=== PATIENT | male | born 1950 | race Caucasian/White ===

== ENCOUNTER 2016-09-24 21:22 | Emergency (ER) | payer OTHER ==
[2016-09-24 21:32] VITALS: RESP 16; TEMP 97.9
[2016-09-24 21:51] LABS: % IMMATURE GRANULYOCYTES 0.6 % (0.0-1.1); ABSOLUTE IMMATURE GRANULOCYTES 0.04 10^3/uL (0.00-0.10); ADD DIFF? NO; ADD MORPH? NO; ADD SCAN? NO; ATYPICAL LYMPHOCYTE FLAG 10 (0-99); FRAGMENT RBC FLAG 0 (0-99); HEMATOCRIT 33.4 % (40.0-51.0); HEMOGLOBIN 12.1 g/dL (13.7-17.5); LEFT SHIFT FLG 0 (0-99); LIPEMIA HEMOLYSIS FLAG 90 (0-99); MEAN CELL HEMOGLOBIN 35.6 pg (27.9-34.1); MEAN CELL HEMOGLOBIN CONCENTR. 36.2 g/dL (32.4-36.7); MEAN CELL VOLUME 98.2 fL (81.5-99.8); MEAN PLATELET VOLUME 9.5 fL (8.7-11.7); PLATELET CLUMPS FLAG 0 (0-99); PLATELET COUNT 235 10^3/uL (150-400); RED CELL DISTRIBUTION WIDTH 12.6 % (11.5-15.2)
[2016-09-24 22:07] LABS: ANION GAP 9 mEq/L (8-16); CALCIUM 9.7 mg/dL (8.5-10.4); CARBON DIOXIDE 24 mEq/l (22-31); CHLORIDE 102 mEq/L (97-110); GLOMERULAR FILTRATION RATE > 60; GLUCOSE 124 mg/dL (70-100); POTASSIUM 3.4 mEq/L (3.5-5.2); SODIUM 135 mEq/L (134-144)
[2016-09-24 22:18] LABS: TROPONIN I < 0.012 ng/mL (0-0.034)
--- NOTE | 2016-09-24 22:22 | CPEKG ---
Heart Rate: 69 RR Interval: 870 P-R Interval: 168 QRSD Interval: 96 QT Interval: 400 QTC Interval: 429 P Troy: 65 QRS Troy: 74 T Wave Troy: 71 EKG Severity - NORMAL ECG - EKG Impression: SINUS RHYTHM Electronically Signed By: Jaime Landrum 24-Sep-2016 22:40:40
[2016-09-24] MEDS ORDERED: NS 1,000 ML IV ONE (22:30)
--- NOTE | 2016-09-24 22:32 | EDPHY ---
H & P Time Seen by Provider: 09/24/16 22:15 HPI/ROS: CHIEF COMPLAINT: Fainted HISTORY OF PRESENT ILLNESS: This 65-year-old man comes to us from [place] [employer]. He was sitting in the bleachers and had smoked some marijuana and said to me that he felt "really stoned" and then got dizzy and lightheaded and apparently passed out between 8 and 15 seconds in duration. History is from the patient as well as his sister and daughter who are here with him. He describes feeling lightheaded and dizzy and weak and then remembers waking up. He felt like he had to use the bathroom but did not actually have a bowel movement. His daughter describes him looking dazed as he was propped up afterwards by someone sitting next to him. No seizure activity noted. No chest pain or shortness of breath. He did hit his head on a plywood wall and back of the bleachers but denies headache or neck pain now. REVIEW OF SYSTEMS: Eye: no change in vision ENT: no sore throat Cardiac: HPI Pulmonary: no cough or SOB Abdomen: no vomiting, diarrhea, abdominal pain. He did have some heartburn which is his typical Mitchell's esophagus this evening. Musculoskeletal: no back pain or neck pain Skin: no rash Neuro: no headache Constitutional: no fever : no urinary symptoms A comprehensive 10 point review of systems is otherwise negative aside from elements mentioned in the history of present illness. PAST MEDICAL HISTORY: Mitchell's esophagus and hypertension Social history: Marijuana as above, visiting from [place]. General Appearance: Alert and conversant, cooperative. Eyes: No scleral icterus. ENT, Mouth: Normal mucous membranes. No tongue laceration or abrasion. Respiratory: Normal respiratory effort, breath sounds equal, lungs are clear to auscultation. Cardiovascular: Regular rate and rhythm. No murmur. Gastrointestinal: Abdomen is soft and non tender. Neurological: Alert and oriented x3. Normally conversant. Face symmetric, normal movement and sensation in all extremities. Normal [id number] bilaterally and no pronator drift. Skin: Warm and dry, no rashes. Musculoskeletal: No cervical thoracic or lumbar spine tenderness, no calf tenderness. Psychiatric: Not agitated. Emergency Department course/MDM: EKG is normal, troponin negative. Glucose is normal. Most likely to be a vasovagal episode. Considered but thought unlikely to be seizure without postictal period, doubt malignant dysrhythmia such as bradycardia or ventricular tachycardia or ventricular fibrillation. 2307: After 1 L normal saline IV, patient feels well, walks around the emergency department, no recurrent syncope. Stable for discharge. Patient and family state agreement with plan. Smoking Status: Light smoker Constitutional: Initial Vital Signs Temperature (C) 36.6 C 09/24/16 21:28 Heart Rate 79 09/24/16 21:28 Respiratory Rate 16 09/24/16 21:28 Blood Pressure 112/77 09/24/16 21:28 O2 Sat (%) 92 09/24/16 21:28 O2 Delivery Mode Room Air Allergies/Adverse Reactions: No Known Allergies Allergy (Unverified 09/24/16 21:28) Home Medications: Medication Instructions Recorded Bp Med 09/24/16 Omeprazole 09/24/16 Ranitidine HCl 09/24/16 Medical Decision Making - Diagnostics EKG Interpretation: 12-lead EKG interpreted by me; official reading is in trace master. My interpretation is normal sinus rhythm, no ischemic changes. Differential Diagnosis: Differential diagnosis considered for syncope including but not limited to vasovagal syncope, acute coronary syndrome, pulmonary embolism, arrhythmia, dehydration, and blood loss. - Data Points Laboratory Results: Laboratory Results 09/24/16 21:39 09/24/16 21:39 09/24/16 09/24/16 21:39 21:39 WBC 7.20 10^3/uL 10^3/uL (3.80-9.50) RBC 3.40 10^6/uL L 10^6/uL (4.40-6.38) Hgb 12.1 g/dL L g/dL (13.7-17.5) Hct 33.4 % L % (40.0-51.0) MCV 98.2 fL fL (81.5-99.8) MCH 35.6 pg H pg (27.9-34.1) MCHC 36.2 g/dL g/dL (32.4-36.7) RDW 12.6 % % (11.5-15.2) Plt Count 235 10^3/uL 10^3/uL (150-400) MPV 9.5 fL fL (8.7-11.7) Neut % (Auto) 66.3 % % (39.3-74.2) Lymph % (Auto) 22.5 % % (15.0-45.0) Cottle % (Auto) 6.0 % % (4.5-13.0) Eos % (Auto) 3.3 % % (0.6-7.6) Baso % (Auto) 1.3 % % (0.3-1.7) Nucleat RBC Rel Count 0.0 % % (0.0-0.2) Absolute Neuts (auto) 4.78 10^3/uL 10^3/uL (1.70-6.50) Absolute Lymphs (auto) 1.62 10^3/uL 10^3/uL (1.00-3.00) Absolute Monos (auto) 0.43 10^3/uL 10^3/uL (0.30-0.80) Absolute Eos (auto) 0.24 10^3/uL 10^3/uL (0.03-0.40) Absolute Basos (auto) 0.09 10^3/uL 10^3/uL (0.02-0.10) Absolute Nucleated RBC 0.00 10^3/uL 10^3/uL (0-0.01) Immature Gran % 0.6 % % (0.0-1.1) Immature Gran # 0.04 10^3/uL 10^3/uL (0.00-0.10) Sodium 135 mEq/L mEq/L (134-144) Potassium 3.4 mEq/L L mEq/L (3.5-5.2) Chloride 102 mEq/L mEq/L (97-110) Carbon Dioxide 24 mEq/l mEq/l (22-31) Anion Gap 9 mEq/L mEq/L (8-16) BUN 19 mg/dL mg/dL (7-23) Creatinine 1.0 mg/dL mg/dL (0.7-1.3) Estimated GFR > 60 Glucose 124 mg/dL H mg/dL (70-100) Calcium 9.7 mg/dL mg/dL (8.5-10.4) Troponin I < 0.012 ng/mL ng/mL (0-0.034) Medications Given: Discontinued Medications Sodium Chloride (Ns) 1,000 mls @ 0 mls/hr IV ONCE ONE; Wide Open PRN Reason: Protocol Stop: 09/24/16 22:31 Last Admin: 09/24/16 22:33 Dose: 1,000 mls Departure - Departure Disposition: Home, Routine, Self-Care Clinical Impression: Syncope Qualifiers: Syncope type: vasovagal syncope Qualified Code(s): R55 - Syncope and collapse Condition: Good Instructions: Syncope (ED) Referrals: BRITTNEY FERGUSON [Other] - As per Instructions
[2016-09-24 23:13] VITALS: BP 121/71; PULSE 78; O2SAT 97
== END 2016-09-24 23:13 | disposition home or self-care (01) ==
DX: R55 Syncope and collapse (principal); I10 Essential (primary) hypertension; F17.200 Nicotine dependence, unspecified, uncomplicated